=== PATIENT | female | born 2000 ===

== ENCOUNTER 2019-01-30 05:51 | Emergency (ER) | payer SELFPAY ==
[~2019-01-30] VITALS: Ht 157.5 cm; Wt 45.4 kg
[2019-01-30] MEDS ORDERED: SODIUM CHLORIDE 0.9% 1,000 ML IV ONE (07:11)
[2019-01-30] MEDS ORDERED: AMMONIA 0.33 ML INHALANT IN ONE ×2 (07:49→10:30)
[2019-01-30 08:18] LABS: Basophils # (auto) 0 uL; Basophils % (auto) 0.6 % (0.0-2.0); Eosinophils # (auto) 0.2 uL; Eosinophils % (auto) 2.3 % (0.0-7.0); Hematocrit 32.8 % (36.0-46.0); Hemoglobin 10.7 g/dL (12.2-16.2); Lymphocytes # (auto) 2.2 uL; Lymphocytes % (auto) 29.2 % (10.0-50.0); Mean Corpuscular Hemoglobin 30.1 pg (28.0-32.0); Mean Corpuscular Hgb Conc. 32.7 g/dL (32.0-36.0); Mean Corpuscular Volume 92.1 fL (80.0-100.0); Monocytes # (auto) 0.7 uL; Monocytes % (auto) 9.3 % (0.0-12.0); Neutrophils # (auto) 4.4 uL; Neutrophils % (auto) 58.6 % (37.0-80.0); Platelet Count (auto) 213 10^3/uL (140-450); Red Blood Cells 3.56 10^6/uL (4.0-5.20); White Blood Cell 7.5 10^3/uL (4.4-10.8)
[2019-01-30 08:40] LABS: Alanine Aminotransferase 20 U/L (13-56); Albumin 3.5 g/dL (3.4-5.0); Anion Gap 8 (5-15); Aspartate Aminotransferase 19 U/L (15-37); BUN/Creatinine Ratio 17.1; Blood Urea Nitrogen 12 mg/dL (7-18); Calcium 8.1 mg/dL (8.5-10.1); Carbon Dioxide 24 mmol/L (21-32); Chloride 112 mmol/L (98-107); GFR African American 139 mL/min; GFR Non-African American 115 mL/min; Glucose 101 mg/dL (74-106); Magnesium 2.3 mg/dL (1.6-2.6); Potassium 3.4 mmol/L (3.5-5.1); Sodium 144 mmol/L (136-145)
[2019-01-30 08:41] LABS: Alkaline Phosphatase 68 U/L (45-117); Bilirubin, Total 0.2 mg/dL (0.2-1.0); Total Protein 6.4 g/dL (6.4-8.2)
[2019-01-30 08:52] LABS: Beta HCG, Quantitative < 1 mlU/mL (1-3); Thyroid Stimulating Hormone 0.29 uIU/mL (0.358-3.74)
[2019-01-30 09:56] VITALS: BP 100/64
[2019-01-30] MEDS ORDERED: POTASSIUM EFFERVESENT TAB 25 MEQ PO ONE (11:00)
== END 2019-01-30 11:55 | disposition home or self-care (01) ==
LOC: ER 05:59
DX: E87.6 Hypokalemia (principal); D64.9 Anemia, unspecified; F15.10 Other stimulant abuse, uncomplicated; F17.210 Nicotine dependence, cigarettes, uncomplicated; Z59.0 Homelessness
CPT/HCPCS: 36415; 80053; 83735; 84443; 84702; 85025; 93005; 99284; J7030